=== PATIENT | female | born 1960 ===

== ENCOUNTER 2021-04-12 18:13 | Observation (INO) ==
[2021-04-12] MEDS ORDERED: Remdesivir 100 mg Vial 200 MG in NS 0.9% 250 ml 210 ML IV ONE (19:38)
[2021-04-12] MEDS ORDERED: Enoxaparin 40 MG/0.4 ML SYR SUBCUT SCH (20:00)
[2021-04-12 20:34] LABS: ABS Eosinophils 0.2 10^3/ul (0-0.6); ABS Lymphocytes 0.8 10^3/ul (1.0-4.8); ABS Monocytes 0.5 10^3/ul (0-0.8); Eosinophil % 1.6 %; Hematocrit 42 % (35-47); Hemoglobin 13.7 g/dL (12.0-16.0); Mean Corpuscular HGB Conc 32 g/dL (31-36); Mean Corpuscular Hemoglobin 30 pg (27-31); Mean Corpuscular Volume 93 fL (80-97); Mean Platelet Volume 8.2 fL (7.4-10.4); Nucleated Red Blood Cells % 0.3; Platelet Count 333 10^3/uL (150-450); Red Blood Count 4.55 10^6 /uL (3.70-4.87); Red Cell Distribution Width 15 % (10-15); White Blood Count 11.5 10^3/uL (3.5-10.8)
[2021-04-12 20:50] LABS: Albumin 3.8 g/dL (3.2-5.2); Albumin/Globulin Ratio 1.7 (1-3); Calcium 8.4 mg/dL (8.6-10.3); Globulin 2.3 g/dL (2-4); INR 1.15 (0.86-1.15); Potassium 4.5 mmol/L (3.5-5.0); Total Bilirubin 0.3 mg/dL (0.2-1.0); Total Protein 6.1 g/dL (6.4-8.9); eGFR CKD-EPI 55.9 (>60)
[2021-04-12] MEDS ORDERED: Azithromycin 500 mg/250 ml NS 500 MG/250 ML BAG IVPB SCH (21:00)
[2021-04-12] MEDS ORDERED: cefTRIAXone 1 gm/50 mL NS BAG 1 GM/50 ML BAG IVPB SCH (21:00)
[2021-04-12] MEDS: Albuterol HFA INHALER 8 gm MDI INH PRN (21:30)
[2021-04-13] MEDS ORDERED: Magnesium Hydroxide LIQ 30 ML UDC PO PRN
[2021-04-13] MEDS: Albuterol HFA INHALER 8 gm MDI INH PRN (04:40)
[2021-04-13] MEDS ORDERED: Mometasone/Formoter 200/5 MDI INH SCH (07:00)
[2021-04-13 08:01] LABS: Albumin 3.8 g/dL (3.2-5.2); Albumin/Globulin Ratio 1.5 (1-3); Calcium 8.2 mg/dL (8.6-10.3); Globulin 2.6 g/dL (2-4); Potassium 4.3 mmol/L (3.5-5.0); Total Protein 6.4 g/dL (6.4-8.9)
[2021-04-13 08:02] LABS: Total Bilirubin 0.3 mg/dL (0.2-1.0)
[2021-04-13 08:11] LABS: ABS Eosinophils 0.1 10^3/ul (0-0.6); ABS Lymphocytes 0.9 10^3/ul (1.0-4.8); ABS Monocytes 0.3 10^3/ul (0-0.8); ABS Neutrophils 7.7 10^3/ul (1.5-7.7); Eosinophil % 0.9 %; Hematocrit 42 % (35-47); Hemoglobin 13.8 g/dL (12.0-16.0); Lymphocyte % 9.6 %; Mean Corpuscular HGB Conc 33 g/dL (31-36); Mean Corpuscular Hemoglobin 31 pg (27-31); Mean Corpuscular Volume 93 fL (80-97); Mean Platelet Volume 8.2 fL (7.4-10.4); Nucleated Red Blood Cells % 0.3; Platelet Count 317 10^3/uL (150-450); Red Blood Count 4.49 10^6 /uL (3.70-4.87); Red Cell Distribution Width 14 % (10-15)
[2021-04-13] MEDS: Aspirin EC 81 mg TAB.EC (enteric coated) PO SCH ×2 (08:24→08:27)
[2021-04-13] MEDS ORDERED: Nicotine PATCH 21 MG/24 HR PATCH TRANSDERM SCH (09:00)
[2021-04-13] MEDS ORDERED: SPIRIVA Respimat (tiotropium) 2.5 mcg/inh Inhaler INH SCH (09:00)
[2021-04-13] MEDS ORDERED: DULoxetine DR 60 mg CAP PO SCH (09:00)
[2021-04-13 16:18] VITALS: BP 124/87
[2021-04-13] MEDS ORDERED: Remdesivir 100 mg Vial 100 MG in NS 0.9% 250 ml 230 ML IV SCH (21:00)
== END 2021-04-13 18:30 | disposition home or self-care (01) ==
LOC: EDBD → SUATTDRO 18:13 → MED 18:13 → INTOOBSV 18:25 → MED 22:25
PROVIDERS: ADMIT Internal Medicine; ATTEND Family Medicine